=== PATIENT | male | born 1980 | race Caucasian/White ===

== ENCOUNTER 2021-05-31 08:05 | Emergency (ER) | payer OTHER ==
[2021-05-31 08:21] VITALS: BP 167/113; PULSE 85; RESP 18; TEMP 97.7
[2021-05-31] MEDS ORDERED: HYDROcodone/APAP 5-325MG 1 EACH TAB PO STA (08:30)
--- NOTE | 2021-05-31 08:35 | ED ---
General Adult HPI - General Chief complaint: ENT Stated complaint: Ear infection Time Seen by Provider: 05/31/21 08:16 Source: patient Mode of arrival: ambulatory Limitations: no limitations - History of Present Illness Initial comments: Dictation was produced using [employer] dictation software. please excuse any grammatical, word or spelling errors. Chief Complaint: 40-year-old male with ear pain History of Present Illness: 40-year-old male who states that as a child he had frequent episodes of ear infections. Over the last 2 days he's been complaining of some left ear pain. Patient denies any swimming recently. He does not wear any earphones or air covers. Does have hairy ears. Denies any constitutional symptoms. Patient states the pain is to his external ear. His pain is worse with movement of the external ear. The ROS documented in this emergency department record has been reviewed and confirmed by me. Those systems with pertinent positive or negative responses have been documented in the HPI. All other systems are other negative and/or noncontributory. PHYSICAL EXAM: General Impression: Alert and oriented x3, not in acute distress HEENT: Normocephalic atraumatic, extra-ocular movements intact, pupils equal and reactive to light bilaterally, mucous membranes moist. Auricular: Right ear exam is normal. Left ear exam shows white and cloudy drainage coming from the left external auditory canal. Left ear is mildly erythematous, there is exacerbation of pain with manipulation of the left external ear, unable to visualize left tympanic membrane due to discharge in the left ear, however it does not appear that the external auditory canal is completely stenosed Cardiovascular: Heart regular rate and rhythm Chest: Able to complete full sentences, no retractions, no tachypnea Abdomen: abdomen soft, non-tender, non-distended, no organomegaly Musculoskeletal: Pulses present and equal in all extremities, no peripheral edema Motor: no focal deficits noted Neurological: CN II-XII grossly intact, no focal motor or sensory deficits noted Skin: Intact with no visualized rashes Psych: Normal affect and mood ED course: 40-year-old male with clinical presentation consistent with otitis externa. vital signs upon arrival are within acceptable limits. Patient prescribed Floxin otic drops for 7 days and by mouth analgesics. - Related Data Previous Rx's Medication Instructions Recorded HYDROcodone/APAP 5-325MG [[place] 1 tab PO Q6HR PRN 3 Days #12 tab 05/31/21 5-325] Ofloxacin 0.3% Otic Soln [Floxin 5 drops BOTH EARS BID 7 Days #1 05/31/21 0.3% Otic Soln] bottle Allergies Allergy/AdvReac Type Severity Reaction Status Date / Time No Known Allergies Allergy Verified 05/31/21 08:20 Review of Systems ROS Statement: Those systems with pertinent positive or pertinent negative responses have been documented in the HPI. ROS Other: All systems not noted in ROS Statement are negative. Past Medical History Past Medical History: No Reported History History of Any Multi-Drug Resistant Organisms: None Reported Past Surgical History: No Surgical Hx Reported Past Psychological History: No Psychological Hx Reported Smoking Status: Current every day smoker Past Alcohol Use History: None Reported Past Drug Use History: None Reported General Exam Limitations: no limitations Course Vital Signs 05/31/21 08:17 Temperature 97.7 F Pulse Rate 85 Respiratory 18 Rate Blood Pressure 167/113 O2 Sat by Pulse 99 Oximetry Disposition Clinical Impression: Otitis externa Disposition: HOME SELF-CARE Condition: Good Instructions (If sedation given, give patient instructions): Earache (ED), Otitis Externa (ED) Prescriptions: Ofloxacin 0.3% Otic Soln [Floxin 0.3% Otic Soln] 5 drops BOTH EARS BID 7 Days #1 bottle HYDROcodone/APAP 5-325MG [[place] 5-325] 1 tab PO Q6HR PRN 3 Days #12 tab PRN Reason: Severe Pain Is patient prescribed a controlled substance at d/c from ED?: Yes If prescribed controlled substance>3 days was MAPS reviewed?: Prescribed <3 Days Referrals: None,Stated [Primary Care Provider] - 1-2 days
== END 2021-05-31 08:54 | disposition home or self-care (01) ==
LOC: EC 08:05
DX: H60.92 Unspecified otitis externa, left ear (principal); F17.200 Nicotine dependence, unspecified, uncomplicated
CPT/HCPCS: 99282